=== PATIENT | female | born 2005 | race Two or more races ===

== ENCOUNTER 2025-03-15 00:05 | Emergency (ER) | payer MEDICAID, OTHER ==
[~2025-03-15] VITALS: Ht 177.8 cm; Wt 145.0 kg
[2025-03-15 01:43] LABS: Hemoglobin 11.0 g/dL (12.2-16.2); Nucleated Red Blood Cells % 0.0 %
[2025-03-15 01:45] LABS: Hematocrit 34.0 % (36.0-46.0); Mean Corpuscular Hemoglobin 27.6 pg (28.0-32.0); Mean Corpuscular Volume 85.5 fL (80.0-100.0)
[2025-03-15] MEDS: hydrOXYzine 25 MG TAB or CAP PO ONE (01:54)
[2025-03-15 01:55] LABS: Chloride 105 mmol/L (98-107); Potassium 3.9 mmol/L (3.5-5.1); Sodium 139 mmol/L (136-145)
[2025-03-15 01:56] LABS: Anion Gap 8 (5-15); Carbon Dioxide 26 mmol/L (20-31)
[2025-03-15 01:57] LABS: Calcium 8.7 mg/dL (8.7-10.4)
[2025-03-15 02:01] LABS: BUN/Creatinine Ratio 10.6 (10.0-20.0); Blood Urea Nitrogen 9 mg/dL (9-23); Glucose 100 mg/dL (74-106)
[2025-03-15 02:50] LABS: Urine Protein, UAD Negative (Negative)
[2025-03-15 02:55] LABS: Benzodiazephine Screen, Urine Neg (NEGATIVE)
[2025-03-15 02:59] LABS: Amphetamine Screen, Urine Neg (NEGATIVE); Barbiturate Scree,Urine Neg (NEGATIVE); Cannabinoid Screen, Urine Neg (NEGATIVE); Cocaine Screen, Urine Neg (NEGATIVE); Opiate Scree,Urine Neg (NEGATIVE); Phencyclidine Screen, Urine Neg (NEGATIVE)
[2025-03-15] MEDS: ACETAMINOPHEN 325 MG TAB PO ONE (03:03)
[2025-03-15 07:20] VITALS: PULSE 100; RESP 20; O2SAT 99
[2025-03-15 08:46] LABS: Hematocrit 32.8 % (36.0-46.0); Hemoglobin 10.7 g/dL (12.2-16.2); Mean Corpuscular Hemoglobin 27.6 pg (28.0-32.0); Mean Corpuscular Volume 85.0 fL (80.0-100.0); Nucleated Red Blood Cells % 0.0 %
--- NOTE | 2025-03-15 11:34 | ED.PDOC ---
History of Present Illness HPI Comments 19-year-old female who came to ER for suicide ideations. Patient resides with a intermediate. History of anxiety, depression, bipolar disorder, suicide attempts in the past. States she has been feeling suicidal for the past 6 months, she started cutting her right wrist with a piece of glass earlier. States she has been unable to do sleep this for the past 3 days. She denies any hallucinations. Denies being homicidal REVIEW OF SYSTEMS: General: No fever, no chills, or fatigue HEENT: No sore throat, no earache, no congestion, no neck pain. Cardiac: No chest pain. No palpitations. Lungs: No shortness of breath, no cough. GI: No nausea, no vomiting, no diarrhea, no constipation, no abdominal pain : No dysuria, frequency, or urgency. No hematuria. Musculoskeletal: No joint pain , no joint swelling, no extremity edema. Skin: No rash, no itching. (+) superficial laceration of the right wrist Neuro: No headache, no dizziness, no weakness, (+) suicidal PHYSICAL EXAM: General: Awake, alert and oriented. No acute distress. Skin: Skin in warm, dry and intact without rashes or lesions. HEENT: The head is normocephalic and atraumatic. Conjunctivae are clear without exudates or hemorrhage. Sclera is non-icteric. Neck: Normal range of motion. No JVD. Cardiac: Regular rate Respiratory: No signs of respiratory distress. No Stridor. Extremities: Superficial laceration right wrist. No active bleeding. Neurological: The patient is awake, alert and oriented to person, place, and time with normal speech. Speech is clear. There is no facial asymmetry. Psychiatric: Flat affect, depressed mood Chief Complaint: Suicidal Time Seen by MD: 01:33 Reviewed Notes: Nurses Notes Allergies: Coded Allergies: Penicillins (Verified Allergy, Unknown, 03/15/25) Information Source: Patient Mode of Arrival: EMS Past Medical History PAST MEDICAL HISTORY: Anxiety, Depression Past Medical History (Other): Bipolar disorder, suicide attempts Surgical History: Denies all surgeries [employer] RELATIONS History: Denies all [employer]EE [employer] RELATIONS Hx Family History Family History: Reviewed,noncontributory to illness Social History Smoker: Non-Smoker Alcohol: Denies ETOH Use Drugs: Denies Drug Use Lives In: Assisted Care Was a procedure done? Was a procedure done?: No Differential Dx Considerations may include: Anxiety, depression, suicide ideation, bipolar, laceration X-Ray, Labs, Meds, VS Vital Signs Date Time Temp Pulse Resp B/P (MAP) Pulse Ox O2 Delivery O2 Flow Rate FiO2 03/15/25 00:45 Room Air* 0 21 03/15/25 00:45 98.0 118 16 102/58 (73) 98 98.0 03/15/25 00:05 98.4 124 18 143/95 100 98.4 Lab Test 03/15/25 01:34 03/15/25 01:24 Range/Units White Blood Count 18.3 H 4.4-10.8 10^3/uL Red Blood Count 3.98 L 4.0-5.20 10^6/uL Hemoglobin 11.0 L 12.2-16.2 g/dL Hematocrit 34.0 L 36.0-46.0 % Mean Corpuscular Volume 85.5 80.0-100.0 fL Mean Corpuscular Hemoglobin 27.6 L 28.0-32.0 pg Mean Corpuscular Hemoglobin Concent 32.3 32.0-36.0 g/dL Red Cell Distribution Width 15.2 H 11.8-14.3 % Platelet Count 465 H 140-450 10^3/uL Mean Platelet Volume 7.2 6.9-10.8 fL Neutrophils (%) (Auto) 79.1 37.0-80.0 % Lymphocytes (%) (Auto) 13.6 10.0-50.0 % Monocytes (%) (Auto) 3.2 0.0-12.0 % Eosinophils (%) (Auto) 3.8 0.0-7.0 % Basophils (%) (Auto) 0.3 0.0-2.0 % Neutrophils # (Auto) 14.4 H 1.6-8.6 10 ^3/uL Lymphocytes # (Auto) 2.5 0.4-5.4 10 ^3/uL Monocytes # (Auto) 0.6 0-1.3 10 ^3/uL Eosinophils # (Auto) 0.7 0-0.8 10 ^3/uL Basophils # (Auto) 0.1 0-0.2 10 ^3/uL Nucleated Red Blood Cells 0.0 % Sodium Level 139 136-145 mmol/L Potassium Level 3.9 3.5-5.1 mmol/L Chloride Level 105 98-107 mmol/L Carbon Dioxide Level 26 20-31 mmol/L Anion Gap 8 5-15 Blood Urea Nitrogen 9 9-23 mg/dL Creatinine 0.85 0.550-1.02 mg/dL Glomerular Filtration Rate Calc 101 >90 mL/min BUN/Creatinine Ratio 10.6 10.0-20.0 Serum Glucose 100 74-106 mg/dL Calcium Level 8.7 8.7-10.4 mg/dL Plasma/Serum Blood Alcohol < 3.0 <10 mg/dL Urine Color Light-yellow Yellow Urine Clarity Clear Clear Urine pH 6.0 5.0-9.0 Urine Specific [place] 1.018 1.001-1.035 Urine Protein Negative Negative Urine Ketones Negative Negative Urine Blood 1+ H Negative /uL Urine Nitrite Negative Negative Urine Bilirubin Negative Negative Urine Urobilinogen Normal Negative mg/dL Urine Leukocyte Esterase Negative Negative /uL Urine RBC 5 0 - 4 /hpf Urine Microscopic WBC < 1 0-5 /HPF Urine Squamous Epithelial Cells Few <5 /hpf Urine Bacteria None seen None Seen /hpf Urine Glucose Normal Normal mg/dL Urine Test Negative Negative Urine Opiates Screen Neg NEGATIVE Urine Fentanyl Screen Neg NEGATIVE Urine Barbiturates Screen Neg NEGATIVE Urine Phencyclidine Screen Neg NEGATIVE Urine Amphetamines Screen Neg NEGATIVE Urine Benzodiazepines Screen Neg NEGATIVE Urine Cocaine Screen Neg NEGATIVE Urine Cannabinoids Screen Neg NEGATIVE Current Medications Medications (Trade) Dose Ordered Sig/Kervin Route Start Time Stop Time Status Last Admin Hydroxyzine Pamoate (Vistaril Oral) 25 mg ONCE ONCE PO 03/15/25 02:00 03/15/25 02:01 DC 03/15/25 01:54 Acetaminophen (Tylenol Tablet) 650 mg ONCE ONCE PO 03/15/25 03:00 03/15/25 03:01 DC 03/15/25 03:17 Time of 1ST Reevaluation: 01:30 Reevaluation 1ST: Unchanged Patient Education/Counseling: Other Family Education/Counseling: No Family Present Change of Shift?: Yes SEPSIS Sepsis Screen Date sepsis recognized/suspect: Mar 15, 2025 Time Sepsis recognized/suspect: 44 Recent Procedure: No On Antibiotic Therapy: No Respiratory Rate >20: No Heart Rate >90: No Temp<36 C (96.8 F) or >38.3 C: No SBP <90 or MAP <65 mmHG: No New Acute Mental Status Change: No Is the patient on CPAP, BIPAP,: No Physician Orders * Psychiatric Consult (03/15/25 02:21) Sitter At Bedside (03/15/25 01:23) Soc Telemed Psych Consult (03/15/25 01:23) Vital Signs Date Time Temp Pulse Resp B/P (MAP) Pulse Ox O2 Delivery O2 Flow Rate FiO2 03/15/25 00:45 Room Air* 0 21 03/15/25 00:45 98.0 118 16 102/58 (73) 98 98.0 03/15/25 00:05 98.4 124 18 143/95 100 98.4 Laboratory Tests Test 03/15/25 01:34 White Blood Count 18.3 10^3/uL (4.4-10.8) H Medications Medications Dose Ordered Sig/Kervin Route Start Time Stop Time Status Last Admin Dose Admin Acetaminophen 650 mg ONCE ONCE PO 03/15/25 03:00 03/15/25 03:01 DC 03/15/25 03:17 Hydroxyzine Pamoate 25 mg ONCE ONCE PO 03/15/25 02:00 03/15/25 02:01 DC 03/15/25 01:54 Departure 1 Departure Time of Disposition: 05:08 Impression: Primary Impression: Suicidal ideation Additional Impressions: Self-cutting of wrist Leukocytosis Disposition: 30 STILL A PATIENT Condition: Stable Comments Signed out to Dr. Bui @ 0600. 19 F with suicidal ideation. Pending psychiatric evaluation. Critical Care Note Critical Care Time?: No Stability Stability form required: No Heart Score Heart Score: Heart Score Response (Comments) Value History N/A 0 EKG N/A 0 Age N/A 0 Risk Factors N/A 0 Troponin N/A 0 Total 0 I personally scribed for MAKAYLA MARQUES MD ([email or web address]) on 03/15/25 at 01:33. Electronically submitted by Ramsey Islas (APR). I personally scribed for MAKAYLA MARQUES MD ([email or web address]) on 03/15/25 at 01:35. Electronically submitted by Ramsey Islas (APR). MAKAYLA MARQUES MD Mar 15, 2025 01:33
--- NOTE | 2025-03-15 11:40 | DVHINCON2 ---
Date of Service if different f: Mar 15, 2025 Time of Service: 05:38 Consult Consult Note PSYCHIATRY ED NEW CONSULT HPI: 19 yo pt with PPH of depression, bipolar, ASD, and anxiety presents to ED BIBA for safety, psychiatric stabilization, and possible med initiation/optimization in setting of depression, anxiety, and passive SI/SIB. Psychiatry consulted for safety evaluation and recommendations in context of current presentation Pt reports over past several weeks experiencing worsening depressed mood, hopelessness/helplessness, negative thoughts, isolation/withdrawn, loss of interest, decreased energy, difficulty with focus, increased sleep/appetite, low self-worth, amotivation, some decline in self-care and anxiety symptoms to include excessive worry, rumination, anger outbursts, emotional dysregulation, mood reactivity, restlessness, racing/intrusive thoughts, palpitations, feeling tensed, and irritability although some symptoms appear chronic in nature. Also chronic fleeting SI with no plan/intent although did engage in SIB via cutting with piece of broken glass. Identifies primary stress as dislike of current , lack of meaningful relationships, limited support system, solitude, etc. Denies HI/AVH/paranoia/catatonic/perceptual disturbances. No overt manic, psychotic, MDD, cognitive, dissociative phenomena, panic, OCD, PTSD, or somatic symptoms noted Does have active outpt MH services established at this time (both t herapy/psychiatry services) with unclear f/u appt Currently rx'd Li 100 mg tid, olanzapine 5 mg qhs, gabapentin (unknown dose), overall med compliant with modest therapeutic effects BROWN hx: Denies ETOH, THC or IDU SH: Single, no children, unemployed, HS dropout, resides at for past year, limited support system noted (immediate family). Unknown trauma hx FH: Denies FH of psych hospitalizations, suicide attempts, or completed suicides PMH: No acute medical/chronic pain issues, hx of seizures/TBI, HIV/hep C, cardiac dz, or recent head injuries, NKDA Some hx of SI/SIB via cutting/SA via OD/hanging self with last attempt in 2014 resulting in multiple prior psych hospitalizations/5150 holds, most recent admission at [facility] last month. Denies history of violence, aggression, or assaultive behaviors. Recent hx of impulsivity, attention seeking behaviors, anger outbursts, emotional dysregulation, mood reactivity, and engaging in risky/reckless behaviors. Denies any legal problems. Does not have access to firearms MSE: General Appearance/Behavior: Alert/awake; appears stated age, dyed hair, overweight, fair grooming/hygiene; calm/polite and cooperative, fair eye contact, no PMA/PMR Speech: coherent, rrr Thought Process: L/L/GD Thought Content: Abnormal Thoughts/Perceptions: denies dissociative symptoms Homicidality / Violent Thoughts: adamantly denies HI Suicidality: + SI Hallucinations: denies AVTH Delusions: denies paranoia, persecutory, or grandiose delusions Obsessions /compulsions: None Judgment/Insight: marginal/fair Mood & Affect: "depressed" with mood-congruent, somewhat restricted/appropriate Orientation: oriented x 3 Attention/Concentration: appears intact Cognition: grossly intact Assessment: 19 yo pt with PPH of depression, bipolar, ASD, and anxiety presents to ED BIBA for safety, psychiatric stabilization, and possible med initiation/optimization in setting of depression, anxiety, and passive SI/SIB Pt currently expressing some SI / has chronic passive SI, also ongoing SIB via cutting in setting of several ongoing life stressors (see hpi). Limited protective factors presently. Pt agrees to talk with staff instead of acting on any suicidal feelings while in ED. Pt medically cleared in ED Acute safety risk remains slightly elevated and is appropriate for inpatient psychiatric admission for further safety, psychiatric stabilization, and possible medication optimization. Pt willing to transfer to inpt psych facility voluntarily. Consider 5150 hold for DTS ONLY if needed for transfer or if no voluntary beds are available Primary Diagnosis: Major Depressive disorder unspecified. ASD, hx Recommend VOL transfer to inpt psych facility for higher level of care 1:1 sitter is recommended Maintain suicide precautions Recommend continuation of current outpt med regimen - Li 100 mg tid, olanzapine 5 mg qhs, gabapentin (unknown dose) - please CONFIRM med dosages from prior to administration Defer any psychotropic med changes to accepting inpt psych facility may benefit from SSRI tx initiation and/or increasing Li dose for greater therapeutic value Risks/benefits/alternative treatments discussed, informed consent provided by pt If patient later refuses voluntary hospitalization/ requests to be discharged from ED prior to transfer, please reconsult telepsych services to evaluate for 5150 hold. Pt verbalized understanding and is receptive to above tx plan This case was discussed with ED nurse/provider and all parties in agreement with above tx plan Dallas Niño MD Plan discussed with: Patient DALLAS NIÑO MD Mar 15, 2025 06:03
[2025-03-16] MEDS: LITHIUM CARBONATE 300 MG TAB PO ONE ×2 (00:34→14:52)
[2025-03-16] MEDS: OLANZapine 5 MG TAB PO ONE (00:34)
[2025-03-16] MEDS: GABAPENTIN 300 MG CAP PO ONE (00:34)
[2025-03-16 07:40] VITALS: PULSE 83; RESP 18; O2SAT 99
[2025-03-16] MEDS ORDERED: OLANZapine 5 MG TAB PO ONE (10:00)
[2025-03-16] MEDS ORDERED: LITHIUM CARBONATE 300 MG TAB PO ONE (10:00)
[2025-03-16] MEDS ORDERED: GABAPENTIN 300 MG CAP PO ONE (10:00)
[2025-03-16] MEDS: hydrOXYzine HCL 10 MG TAB PO ONE (14:51)
[2025-03-16 19:38] LABS: Hematocrit 34.4 % (36.0-46.0); Hemoglobin 11.2 g/dL (12.2-16.2); Mean Corpuscular Hemoglobin 27.8 pg (28.0-32.0); Mean Corpuscular Volume 85.2 fL (80.0-100.0); Nucleated Red Blood Cells % 0.0 %
[2025-03-16 19:50] VITALS: O2SAT 99
[2025-03-16] MEDS: OLANZapine 5 MG TAB PO SCH (21:20)
[2025-03-16] MEDS: hydrOXYzine HCL 10 MG TAB PO SCH (21:20)
[2025-03-16] MEDS: LITHIUM CARBONATE 300 MG TAB PO SCH (21:20)
[2025-03-16] MEDS: HYDROcodone-ACET 5/325MG TAB PO ONE (22:00)
[2025-03-17 07:30] VITALS: PULSE 113; RESP 16; O2SAT 96
[2025-03-17] MEDS: cefTRIAXone SOD 1,000 MG VL IM ONE (10:08)
[2025-03-17 12:00] VITALS: PULSE 80; RESP 14; O2SAT 94
[2025-03-18] MEDS: MELATONIN 5 MG TAB PO ONE (01:37)
[2025-03-18 03:00] VITALS: RESP 14; O2SAT 99
--- NOTE | 2025-03-18 12:30 | DVHINCON2 ---
Date of Service if different f: Mar 18, 2025 Time of Service: 12:28 Consultation ([place]) Labs Laboratory Tests Test 03/15/25 01:24 03/15/25 01:34 03/15/25 08:23 03/16/25 19:23 Urine Color Light-yellow (Yellow) Urine Clarity Clear (Clear) Urine pH 6.0 (5.0-9.0) Urine Specific [place] 1.018 (1.001-1.035) Urine Protein Negative (Negative) Urine Ketones Negative (Negative) Urine Blood 1+ /uL (Negative) Urine Nitrite Negative (Negative) Urine Bilirubin Negative (Negative) Urine Urobilinogen Normal mg/dL (Negative) Urine Leukocyte Esterase Negative /uL (Negative) Urine RBC 5 /hpf (0 - 4) Urine Microscopic WBC < 1 /HPF (0-5) Urine Squamous Epithelial Cells Few /hpf (<5) Urine Bacteria None seen /hpf (None Seen) Urine Glucose Normal mg/dL (Normal) Urine Test Negative (Negative) Urine Opiates Screen Neg (NEGATIVE) Urine Fentanyl Screen Neg (NEGATIVE) Urine Barbiturates Screen Neg (NEGATIVE) Urine Phencyclidine Screen Neg (NEGATIVE) Urine Amphetamines Screen Neg (NEGATIVE) Urine Benzodiazepines Screen Neg (NEGATIVE) Urine Cocaine Screen Neg (NEGATIVE) Urine Cannabinoids Screen Neg (NEGATIVE) Sodium Level 139 mmol/L (136-145) Potassium Level 3.9 mmol/L (3.5-5.1) Chloride Level 105 mmol/L (98-107) Carbon Dioxide Level 26 mmol/L (20-31) Anion Gap 8 (5-15) Blood Urea Nitrogen 9 mg/dL (9-23) Creatinine 0.85 mg/dL (0.550-1.02) Glomerular Filtration Rate Calc 101 mL/min (>90) BUN/Creatinine Ratio 10.6 (10.0-20.0) Serum Glucose 100 mg/dL (74-106) Calcium Level 8.7 mg/dL (8.7-10.4) Plasma/Serum Blood Alcohol < 3.0 mg/dL (<10) Lactic Acid Level 1.2 mmol/L (0.4-2.0) White Blood Count 14.3 10^3/uL (4.4-10.8) Red Blood Count 4.04 10^6/uL (4.0-5.20) Hemoglobin 11.2 g/dL (12.2-16.2) Hematocrit 34.4 % (36.0-46.0) Mean Corpuscular Volume 85.2 fL (80.0-100.0) Mean Corpuscular Hemoglobin 27.8 pg (28.0-32.0) Mean Corpuscular Hemoglobin Concent 32.6 g/dL (32.0-36.0) Red Cell Distribution Width 15.2 % (11.8-14.3) Platelet Count 475 10^3/uL (140-450) Mean Platelet Volume 7.5 fL (6.9-10.8) Neutrophils (%) (Auto) 73.2 % (37.0-80.0) Lymphocytes (%) (Auto) 17.3 % (10.0-50.0) Monocytes (%) (Auto) 3.8 % (0.0-12.0) Eosinophils (%) (Auto) 5.3 % (0.0-7.0) Basophils (%) (Auto) 0.4 % (0.0-2.0) Neutrophils # (Auto) 10.5 10 ^3/uL (1.6-8.6) Lymphocytes # (Auto) 2.5 10 ^3/uL (0.4-5.4) Monocytes # (Auto) 0.5 10 ^3/uL (0-1.3) Eosinophils # (Auto) 0.8 10 ^3/uL (0-0.8) Basophils # (Auto) 0.1 10 ^3/uL (0-0.2) Nucleated Red Blood Cells 0.0 % Microbiology Date/Time Source Procedure Growth Status 03/15/25 08:33 Blood Blood Culture - Preliminary NO GROWTH AFTER 72 HOURS OF INCUBATION. Resulted Vitals Vital Signs Date Time Temp Pulse Resp B/P (MAP) Pulse Ox O2 Delivery O2 Flow Rate FiO2 03/18/25 12:00 60 03/18/25 08:52 97.8 18 130/68 (88) 95 97.8 03/18/25 03:00 Room Air* 0 21 Current medications Current Medications Medications Dose Ordered Sig/Kervin Route Start Time Stop Time Status Last Admin Dose Admin Hydroxyzine HCl 5 mg BID PO 03/16/25 22:00 03/18/25 10:16 5 MG [place] Carbonate 100 mg TID PO 03/16/25 22:00 03/18/25 07:42 100 MG Olanzapine 5 mg HS PO 03/16/25 22:00 03/17/25 21:30 5 MG PSYCHIATRY CONSULTATION FOLLOW UP EVALUATION REASON FOR CONSULT: Presented following episode of self-harm. Pt now medically cleared. SUBJECTIVE: On reevaluation, patient reports she is not great. She is annoyed because they have failed to placed her. She came in initially after trying to kill herself due to ongoing sadness, she denies any clear stressor. Pt reports ongoing sadness and suicidal ideations. She does not feel safe to leave the hospital. While she has spoken to her mother, no one has come to visit her. It makes her feel as if she does not matter. Pt takes [place], Zyprexa, and an anxiety med. She denies any SE to her meds. Meds help a little bit. Pt is not currently in therapy. Therapy was going well before therapist had to leave. At home, pt denies access to firearms. Pt does not work, is not in school. She is okay trying to work on her mental health now, and being transferred for inpatient psychiatric admission. OBJECTIVE: The patient is a 19yo female, alert and oriented to person, place, time, and situation. She appears disheveled, with tearful affect and downcast gaze. Psychomotor activity is slowed. Speech is soft, spontaneous, and goal-directed. Mood is described as not great; affect is constricted and congruent with mood. Thought process is linear and logical. Thought content notable for ongoing suicidal ideation without a specific plan while hospitalized; she reports she would harm herself if discharged. No delusions or hallucinations elicited. Insight is fair; she recognizes she is unsafe to leave the hospital. Judgment is impaired by depressive symptoms. Impulse control is limited. DX: Unspecified depression ASSESSMENT: This is a 19yo patient presenting after a recent suicide attempt by self-harm and currently endorsing persistent suicidal ideation and hopelessness. She reports feeling unwanted and unsupported by family, which reinforces her low self-worth and lack of safety. Although she is medically cleared, her ongoing suicidal thoughts, recent attempt, and expressed inability to remain safe in the community constitute high acute risk for self-harm. She demonstrates partial medication adherence, fair insight, and willingness for inpatient psychiatric treatment, which are protective factors but insufficient to mitigate current risk. RECOMMENDATIONS: 1. Legal: Initiate 5150 hold for Danger to Self (DTS) due to recent suicide attempt, continued suicidal ideation, and inability to ensure safety if discharged. 2. Disposition: Refer for inpatient psychiatric admission for safety, stabilization, medication management, and re-establishment of outpatient mental- health supports upon discharge. 3. Medications: Continue current medications. 4. Medical Considerations: Patient is reportedly medically cleared for psychiatric transfer. Maintain suicide precautions and 1:1 observation until transfer. DELL MARIA MD Mar 18, 2025 12:30
[2025-03-18 19:49] VITALS: PULSE 120; RESP 18; O2SAT 97
[2025-03-19 07:30] VITALS: PULSE 121; RESP 16; O2SAT 95
[2025-03-19 12:50] VITALS: BP 121/73; PULSE 114; RESP 16; TEMP 97.8; O2SAT 95
== END 2025-03-19 13:26 | disposition short-term general hospital (02) ==
LOC: EDBD 00:05 → ER 00:05
DX: S61.519A Laceration without foreign body of unspecified wrist, initial encounter (principal); R45.851 Suicidal ideations; Z79.899 Other long term (current) drug therapy; X78.0XXA Intentional self-harm by sharp glass, initial encounter; Y93.89 Activity, other specified; Y92.89 Other specified places as the place of occurrence of the external cause; Y99.8 Other external cause status
CPT/HCPCS: 36415; 80048; 80307; 80320; 81001; 81025; 83605; 85025; 87040; 96372; 99285; J0696